=== PATIENT | male | born 1985 | race Hispanic/Latino ===

== ENCOUNTER 2025-09-29 09:48 | Emergency (ER) | payer SELFPAY ==
[2025-09-29 10:36] LABS: #Basophils 0.03 10x3/uL (0.0-0.2); #Eosinophils 0.08 10x3/uL (0.0-0.5); #Monocytes 0.39 10x3/uL (0.0-1.1); #Neutrophils 3.34 10x3/uL (1.5-8.4); %Basophils 0.5 % (0.0-2.0); %Eosinophils 1.4 % (0.0-6.0); %Lymphocytes 33.0 % (18.0-47.0); %Monocytes 6.8 % (0.0-10.0); %Neutrophils 58.1 % (40.0-75.0); Hematocrit 47.8 % (38.8-50.0); Hemoglobin 16.2 g/dL (13.5-17.5); Mean Corpuscular Hemoglobin 29.7 pg (27.0-33.0); Mean Corpuscular Volume 87.7 fL (81.2-95.1); Platelet Count 280 10x3/uL (150-450); Red Blood Cell (RBC) Count 5.45 10x6/uL (4.32-5.72); White Blood Cell (WBC) Count 5.75 10x3/uL (3.5-10.5)
[2025-09-29 10:42] LABS: Glucose, Urine (Dipstick) 100 mg/dL (Negative); Leukocyte Negative (Negative); Protein, Urine (Dipstick) Negative (Neg-Trace); Specific Gravity, Urine 1.005 (1.005-1.030)
[2025-09-29 10:49] LABS: Bacteria/HPF Rare-Few HPF (None Seen); CAUTI Indications for Culture Pelvic or flank pain; RBC/HPF None Seen HPF (0-3); Urine Culture Reflex No No; WBC/HPF None Seen HPF (0-3)
[2025-09-29 10:57] LABS: ALT (SGPT) 27 U/L (Less than 45); AST (SGOT) 31 U/L (11-34); Albumin 4.2 g/dL (3.1-4.5); Alkaline Phosphatase 79 U/L (40-110); Anion Gap 12 mmol/L (10-20); BUN (Urea Nitrogen) 13 mg/dL (8.9-20.6); Bilirubin, Total 0.6 mg/dL (0.3-1.2); Calc. Creatinine Clearance 0 mL/min (70-130); Calcium 9.4 mg/dL (7.8-10.44); Carbon Dioxide 26 mmol/L (22-29); Chloride 106 mmol/L (98-107); Globulin 3.6 g/dL (2.4-3.5); Glucose 74 mg/dL (70-105); Lipase 26 U/L (8-78); Magnesium 2.1 mg/dL (1.6-2.6); Potassium 4.0 mmol/L (3.5-5.1); Sodium 140 mmol/L (136-145)
[2025-09-29] MEDS ORDERED: Iopamidol 300 61% 100 ML VIAL FS ONE (14:20)
== END 2025-09-29 15:08 | disposition home or self-care (01) ==
LOC: CSHERS 09:48
DX: K52.9 Noninfective gastroenteritis and colitis, unspecified (principal)
CPT/HCPCS: 74177; 80053; 81001; 83690; 83735; 85025; 93005; Q9967